=== PATIENT | female | born 1955 | race Caucasian/White ===

== ENCOUNTER → 2021-09-24 | Outpatient (CLI) | payer OTHER ==
[~2021-09-24] MED LIST: ALPR.5 PO; ALPR.5CR; CITA20 PO; CONEST.625; CRANBERRY 12,61 EACH PO; ESOM20 PO; IBUP600 PO; LORA10 PO; MECL25 PO; SERT50 PO; TOCO1000 PO; TOLT4 PO; VITAMIN D35000 UNIT PO; Vivelle-Dot1 EAC1 TD
[2021-09-24 11:16] LABS: Source, Urine Clean Catch
[2021-09-24 12:13] LABS: Bilirubin, Urine Neg (Neg); Blood, Urine 4+ (Neg); Glucose Qualitative, Urine Neg (Neg); Ketones, Urine Neg (Neg); Leukocyte Esterase, Urine 2+ (Neg); Nitrite, Urine Neg (Neg); Protein, Urine 1+ (Neg); Urobilinogen, Urine NORM (Normal)
[2021-09-24 12:26] LABS: Appearance, Urine Hazy (Clear); Color, Urine Pale Yellow (P-Yellow)
[2021-09-24 12:27] LABS: Bacteria Few /hpf; Mucus Light (0-Heavy); Red Blood Cells, Urine 25-50 /hpf (0-2); Squamous Epithelial Cells Mod /hpf (Few); WBC Cast 0-2 /lpf (0); Yeast/Fungi Urine Rare /hpf
== END ==
LOC: LAB SHORT 11:03 → LAB FUT 09-22 09:30
DX: R30.0 Dysuria (principal)
CPT/HCPCS: 81001; 87077; 87086; 87186

== ENCOUNTER → 2022-04-26 | Outpatient (CLI) | payer OTHER | END | disposition home or self-care (01) | LOC: LAB SHORT 10:45 → LAB 10:45 | DX: N39.0 Urinary tract infection, site not specified (principal) | CPT/HCPCS: 87077; 87086; 87186 ==

== ENCOUNTER → 2022-08-03 | Outpatient (CLI) | payer MEDICARE | LOC: PLD 11:07 → LAB SHORT 11:07 | DX: D48.5 Neoplasm of uncertain behavior of skin (principal) | CPT/HCPCS: 88305 ==

== ENCOUNTER 2023-08-11 11:34 | Day surgery (SDC) | payer MEDICARE, OTHER ==
[~2023-08-11] VITALS: Ht 160 cm; Wt 74.6 kg
[~2023-08-11 11:34] MED LIST changes: +Lactated Ringer's 1,000 ML IV ONE
[2023-08-11] MEDS ORDERED: Clindamycin 900mg in D5W 50ML 50 ML IV ONE (11:44)
[2023-08-11] MEDS ORDERED: Lidocaine HCl 2% 10 ML SDA ONE (12:06)
[2023-08-11] MEDS ORDERED: Ropivacaine 0.5% HCl/Pf 5 MG/ML 20ML VIAL ONE (12:06)
[2023-08-11] MEDS ORDERED: Lactated Ringer's 1,000 ML IV ONE (12:15)
[2023-08-11] MEDS ORDERED: propofoL 20 ML IV ONE (12:53)
[2023-08-11] MEDS ORDERED: FentaNYL Citrate 50 MCG/ML 2 ML Injection ONE (12:53)
[2023-08-11] MEDS ORDERED: Ondansetron HCl 2 MG / ML 2ML Vial ONE (13:37)
[2023-08-11] MEDS ORDERED: Dexamethasone Sod Phos 10 MG/ML 1ML VIAL ONE (13:37)
[2023-08-11] MEDS ORDERED: Midazolam HCl 1MG / ML 2ML Vial ONE (13:40)
[2023-08-11] MEDS ORDERED: DiphenhydrAMINE HCl 50 MG/ML 1ML Vial ONE (13:52)
[2023-08-11 14:43] VITALS: BP 117/76
== END 2023-08-11 15:20 | disposition home or self-care (01) ==
LOC: ORSCSDS 11:34
PROVIDERS: Podiatrist Foot & Ankle Surgery
PROC: 0SNP0ZZ Release Right Toe Phalangeal Joint, Open Approach (ICD-10-PCS; principal; 2023-08-11 12:55)
DX: M20.41 Other hammer toe(s) (acquired), right foot (principal); M79.671 Pain in right foot; M79.7 Fibromyalgia; Z79.899 Other long term (current) drug therapy
CPT/HCPCS: J1100; J1200; J2001; J2250; J2405; J2704; J2795; J3010; J7120

== ENCOUNTER → 2023-10-25 | Outpatient (CLI) | payer MEDICARE, OTHER ==
[~2023-10-25] MED LIST changes: -Lactated Ringer's 1,000 ML IV ONE
[2023-10-25 14:32] LABS: Free Thyroxine 0.74 ng/dL (0.70-1.60); Thyroid Stimulating Hormone 1.8 uIU/mL (0.360-4.800)
== END | disposition home or self-care (01) ==
LOC: LAB SHORT 12:39 → LAB EV 12:39
PROVIDERS: Student in an Organized Health Care Education/Training Program
DX: R63.5 Abnormal weight gain (principal)
CPT/HCPCS: 84439; 84443